=== PATIENT | female | born 1995 | race Two or more races ===

== ENCOUNTER 2016-06-01 14:21 | Emergency (ER) | payer SELFPAY ==
[~2016-06-01] VITALS: Ht 162.6 cm; Wt 59.0 kg
[2016-06-01 14:21] VITALS: BP 111/85
[~2016-06-01 14:21] MED LIST: [UNRECOGNIZED DRUG - REMARK]
[2016-06-01] MEDS ORDERED: ACETAMINOPHEN ES 500 MG TABLET PO ONE (15:00)
[2016-06-01] MEDS ORDERED: ACETAMINOPHEN ES 500 MG TABLET ONE (15:03)
== END 2016-06-01 15:14 ==
LOC: ER 14:23
DX: S60.212A Contusion of left wrist, initial encounter (principal); Z88.0 Allergy status to penicillin; X58.XXXA Exposure to other specified factors, initial encounter; Y93.9 Activity, unspecified; Y92.9 Unspecified place or not applicable; Y99.9 Unspecified external cause status
CPT/HCPCS: 73110; 99284; A4606; Z7610

== ENCOUNTER 2018-04-19 21:08 | Emergency (ER) | payer OTHER ==
[~2018-04-19] VITALS: Ht 170.2 cm; Wt 81.6 kg
--- NOTE | 2018-04-19 21:30 | NUR ---
PT PRESENTED TO THE ER WITH A C/O VAGINAL BLEEDING X 1 [employer]. PT STATED THAT SHE IS 7 WKS AND THIS IS HER 3RD . PT HAS 1 CHILD AND HAD 1 MISCARRIAGE. PT STATED THAT SHE JUST WENT TO THE BATHROOM AND THE URINE WAS PINK TINGED. PT AMBULATED TO ER #2 AND IS AWAITING EVAL BY .
--- NOTE | 2018-04-19 22:23 | NUR ---
US TECH IS AT THE BEDSIDE.
[2018-04-19 22:52] LABS: APPEARANCE,URINE CLEAR (CLEAR); BILIRUBIN,URINE NEGATIVE (NEGATIVE); BLOOD, URINE 1+ Ery/uL (NEGATIVE); COLOR,URINE YELLOW (YELLOW); KETONES,URINE 2+ (NEGATIVE); LEUKOCYTE ESTERASE ,URINE NEGATIVE (NEGATIVE); NITRITE, URINE NEGATIVE (NEGATIVE); PH,URINE 5.5 (5.0-8.0); PROTEIN,URINE NEGATIVE (NEGATIVE); UGLUCOSE NEGATIVE (NEGATIVE); UROBILINOGEN,URINE 0.2 EU/dL (0.2)
[2018-04-19 23:08] LABS: BASOPHILS % (AUTO) 0.3 % (0.0-2.0); EOSINOPHILS % (AUTO) 0.6 % (0.0-6.0); HEMATOCRIT 39 % (33-45); HEMOGLOBIN 13.4 g/dL (11.5-14.8); LYMPHOCYTES # (AUTO) 2.5 /CMM (0.8-4.8); LYMPHOCYTES % (AUTO) 24.8 % (20.0-44.0); MEAN CORPUSCULAR HGB CONC 34 g/dl (31.0-36.0); MEAN CORPUSCULAR VOLUME 87 fL (82-100); MONOCYTES # (AUTO) 0.9 /CMM (0.1-1.30); MONOCYTES % (AUTO) 8.7 % (2.0-12.0); NEUTROPHILS # (AUTO) 6.6 /CMM (1.8-8.9); NEUTROPHILS % (AUTO) 65.6 % (43.0-81.0); PLATELET COUNT (AUTO) 277 /CMM (150-450); RED BLOOD CELL COUNT(AUTO) 4.49 MIL/uL (4.0-5.2)
[2018-04-19 23:25] LABS: POTASSIUM 3.3 mmol/L (3.5-5.1)
[2018-04-19 23:26] LABS: CALCIUM, SERUM 9.1 mg/dL (8.5-10.1); CREATININE 0.6 mg/dL (0.6-1.3)
[2018-04-19 23:35] LABS: BACTERIA,URINE Few /HPF (None Seen); MUCUS,URINE Many /LPF (None Seen); SQUAMOUS EPITHELIAL CELL,UR Moderate /HPF (None Seen); WBC,URINE 0-2 /HPF (0-3)
--- NOTE | 2018-04-19 23:48 | NUR ---
Patient discharged to home in stable condition. Written and verbal after care instructions given. Patient verbalizes understanding of instruction. PT REC'D A COPY OF US FINDINGS. PT AMBULATED OUT WITH A STEADY GAIT. VSS. NAD NOTED.
[2018-04-19 23:50] VITALS: BP 120/72
== END 2018-04-19 23:50 | disposition home or self-care (01) ==
LOC: ER 21:10
DX: O46.8X1 Other antepartum hemorrhage, first trimester (principal); O99.011 Anemia complicating pregnancy, first trimester; Z88.0 Allergy status to penicillin; Z3A.01 Less than 8 weeks gestation of pregnancy
CPT/HCPCS: 36415; 76805-TC; 80048-TC; 81000-TC; 84702-TC; 85025-TC; 85730-TC

== ENCOUNTER 2018-04-27 08:44 | Emergency (ER) | payer OTHER ==
[~2018-04-27] VITALS: Ht 165.1 cm; Wt 74.8 kg
--- NOTE | 2018-04-27 09:29 | NUR ---
PT WALKED INTO EMERGENCY ROOM FOR VAGINAL DISCHARGE WHITE WITH BLOOD TINGED X 3 DAYS. PT ALERT WITH ORIENTATION X 4 LAB BINA SAMPLES. WILL CONTINUE TO FOLLOW.
[2018-04-27] MEDS ORDERED: ACETAMINOPHEN 325 MG TABLET PO ONE (09:30)
[2018-04-27] MEDS ORDERED: ACETAMINOPHEN 325 MG TABLET ONE (09:33)
[2018-04-27 09:34] LABS: BASOPHILS % (AUTO) 0.2 % (0.0-2.0); EOSINOPHILS % (AUTO) 0.7 % (0.0-6.0); HEMATOCRIT 40 % (33-45); LYMPHOCYTES # (AUTO) 1.7 /CMM (0.8-4.8); LYMPHOCYTES % (AUTO) 17.6 % (20.0-44.0); MEAN CORPUSCULAR HGB CONC 35 g/dl (31.0-36.0); MEAN CORPUSCULAR VOLUME 87 fL (82-100); MONOCYTES # (AUTO) 0.7 /CMM (0.1-1.30); MONOCYTES % (AUTO) 7.3 % (2.0-12.0); NEUTROPHILS # (AUTO) 7.1 /CMM (1.8-8.9); NEUTROPHILS % (AUTO) 74.2 % (43.0-81.0); PLATELET COUNT (AUTO) 282 /CMM (150-450); RED BLOOD CELL COUNT(AUTO) 4.65 MIL/uL (4.0-5.2); WHITE BLOOD COUNT (AUTO) 9.5 K/uL (4.3-11.0)
--- NOTE | 2018-04-27 10:19 | NUR ---
PT. VERBALIZED UNDERSTANDING OF AFTERCARE INSTRUCTIONS.Patient discharged to home in stable condition. Written and verbal after care instructions given. Patient verbalizes understanding of instruction.
[2018-04-27 10:20] VITALS: BP 134/71
== END 2018-04-27 10:21 | disposition home or self-care (01) ==
LOC: ER 08:51
DX: O46.8X1 Other antepartum hemorrhage, first trimester (principal); O99.011 Anemia complicating pregnancy, first trimester; Z88.0 Allergy status to penicillin; Z3A.08 8 weeks gestation of pregnancy
CPT/HCPCS: 36415; 76856-TC; 84702-TC; 85025-TC

== ENCOUNTER 2023-05-07 22:14 | Emergency (ER) | payer OTHER ==
[~2023-05-07] VITALS: Ht 162.6 cm; Wt 79.4 kg
[2023-05-07 23:23] VITALS: TEMP 98.2
[2023-05-07] MEDS ORDERED: ONDANSETRON HCL/PF 4 MG/2 ML VIAL ONE (23:35)
[2023-05-07] MEDS ORDERED: FAMOTIDINE/PF INJ 20 MG/2 ML VIAL IV ONE (23:36)
[2023-05-07] MEDS: ONDANSETRON HCL/PF 4 MG/2 ML VIAL IVP ONE (23:45)
[2023-05-07] MEDS: IV NS 0.9% 1,000 ML BAG IV ONE (23:45)
[2023-05-07] MEDS: FAMOTIDINE/PF INJ 20 MG/2 ML VIAL IV ONE (23:47)
[2023-05-08 00:12] LABS: CALCIUM, SERUM 9.3 mg/dL (8.5-10.1); CREATININE 0.9 mg/dL (0.6-1.3); POTASSIUM 3.6 mmol/L (3.5-5.1)
[2023-05-08 00:20] LABS: BASOPHILS % (AUTO) 0.4 % (0.0-2.0); EOSINOPHILS # (AUTO) 0.1 K/uL (0.0-0.7); EOSINOPHILS % (AUTO) 0.8 % (0.0-6.0); HEMATOCRIT 38 % (33-45); HEMOGLOBIN 12.8 g/dL (11.5-14.8); LYMPHOCYTES % (AUTO) 26.5 % (20.0-44.0); MEAN CORPUSCULAR HEMOGLOBIN 28 PG (26.0-33.0); MEAN CORPUSCULAR HGB CONC 33 g/dl (31.0-36.0); MEAN CORPUSCULAR VOLUME 84 fL (82-100); MONOCYTES # (AUTO) 0.7 K/uL (0.1-1.30); MONOCYTES % (AUTO) 8.9 % (2.0-12.0); NEUTROPHILS # (AUTO) 4.8 K/uL (1.8-8.9); NEUTROPHILS % (AUTO) 63.4 % (43.0-81.0); PLATELET COUNT (AUTO) 322 K/uL (150-450); RED BLOOD CELL COUNT(AUTO) 4.54 MIL/uL (4.0-5.2); WHITE BLOOD COUNT (AUTO) 7.5 K/uL (4.3-11.0)
[2023-05-08 00:25] LABS: ALBUMIN 3.9 g/dL (3.4-5.0); BILIRUBIN,DIRECT 0.1 mg/dL (0.0-0.2); BILIRUBIN,TOTAL 0.4 mg/dL (0.2-1.0); TOTAL PROTEIN, SERUM 8.2 g/dL (6.4-8.2)
[2023-05-08 00:39] LABS: APPEARANCE,URINE CLEAR (CLEAR); BILIRUBIN,URINE NEGATIVE (NEGATIVE); BLOOD, URINE TRACE-INTA Ery/uL (NEGATIVE); COLOR,URINE YELLOW (YELLOW); KETONES,URINE TRACE mg/dL (NEGATIVE); LEUKOCYTE ESTERASE ,URINE NEGATIVE (NEGATIVE); NITRITE, URINE NEGATIVE (NEGATIVE); PH,URINE 5.5 (5.0-8.0); PROTEIN,URINE TRACE mg/dl (NEGATIVE); UGLUCOSE NEGATIVE (NEGATIVE); UROBILINOGEN,URINE 0.2 EU/dL (0.2)
[2023-05-08 00:42] LABS: ADD URINE CULTURE NO; BACTERIA,URINE Rare /HPF (None Seen); PREGNANCY TEST URINE QUAL NEGATIVE (NEGATIVE); RBC,URINE 0-2 /HPF (0-2); SQUAMOUS EPITHELIAL CELL,UR Few /HPF (None Seen); WBC,URINE 0-2 /HPF (0-3)
[2023-05-08 05:19] VITALS: BP 134/91; O2SAT 100
== END 2023-05-08 05:20 | disposition home or self-care (01) ==
LOC: ER 22:19
DX: R10.84 Generalized abdominal pain (principal); R11.0 Nausea; R10.2 Pelvic and perineal pain; Z88.0 Allergy status to penicillin
CPT/HCPCS: 99285; 74176; 96374; 96361; 96375; 85025; 80048; 87086; 83690; 80076; 84703; 81001; 36415; 84702; J3490; J2405; J7030

== ENCOUNTER 2023-10-06 16:02 | Emergency (ER) | payer OTHER ==
[~2023-10-06] VITALS: Ht 162.6 cm; Wt 90.7 kg
[2023-10-06 16:16] VITALS: BP 131/85; TEMP 98.2
[2023-10-06] MEDS ORDERED: ACET-2605 PO (16:51)
[2023-10-06] MEDS ORDERED: GUAI-946 PO (16:51)
[2023-10-06] MEDS ORDERED: CLIN300C12 PO (16:51)
[2023-10-06] MEDS ORDERED: IBUP-1490 PO (16:51)
[2023-10-06] MEDS ORDERED: KETOROLAC TROMETHAMINE 15 MG/ML VIAL ONE (16:55)
[2023-10-06] MEDS: KETOROLAC TROMETHAMINE 15 MG/ML VIAL IM ONE (17:04)
[2023-10-06 17:11] VITALS: O2SAT 98
== END 2023-10-06 17:11 | disposition home or self-care (01) ==
LOC: ER 16:11
DX: K03.81 Cracked tooth (principal); K02.9 Dental caries, unspecified; H92.09 Otalgia, unspecified ear; J02.9 Acute pharyngitis, unspecified; F19.10 Other psychoactive substance abuse, uncomplicated; Z88.0 Allergy status to penicillin
CPT/HCPCS: 99283; 96372; J1885